=== PATIENT | male | born 1995 | race Two or more races ===

== ENCOUNTER 2021-09-13 21:57 | Emergency (ER) | payer OTHER ==
[~2021-09-13] VITALS: Ht 165.1 cm; Wt 39.9 kg
[2021-09-14] MEDS ORDERED: NAPROXEN500 MG PO (04:43)
[2021-09-14] MEDS ORDERED: AZITHROMYCIN500 MG PO (04:48)
== END 2021-09-14 06:01 | disposition home or self-care (01) ==
LOC: ER 21:57
DX: R59.1 Generalized enlarged lymph nodes (principal); B27.90 Infectious mononucleosis, unspecified without complication